=== PATIENT | male | born 1935 | race Caucasian/White ===

== ENCOUNTER 2018-10-05 19:44 | Inpatient (IN) | payer MEDICARE ==
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
[2018-10-05 21:15] LABS: ABS Basophils 0.1 10^3/ul (0-0.2); ABS Eosinophils 0.3 10^3/ul (0-0.6); ABS Lymphocytes 1.3 10^3/ul (1.0-4.8); ABS Monocytes 0.8 10^3/ul (0-0.8); ABS Neutrophils 3.1 10^3/ul (1.5-7.7); ABS Nucleated RBC 0 10^3/ul; Eosinophil % 4.6 %; Hematocrit 37 % (36-46); Hemoglobin 12.4 g/dL (14.0-18.0); Lymphocyte % 23.5 %; Mean Corpuscular HGB Conc 34 g/dL (31-36); Mean Corpuscular Hemoglobin 30 pg (27-31); Mean Corpuscular Volume 90 fL (80-94); Mean Platelet Volume 8.4 fL (7.4-10.4); Nucleated Red Blood Cells % 0; Platelet Count 190 10^3/uL (150-450); Red Blood Count 4.11 10^6 /uL (4.18-5.48); Red Cell Distribution Width 16 % (10.5-15); White Blood Count 5.6 10^3/uL (3.5-10.8)
[2018-10-05 21:23] LABS: INR 1.05 (0.77-1.02)
[2018-10-05 21:31] LABS: Albumin 3.5 g/dL (3.2-5.2); BUN/Creatinine Ratio 20.3 (8-20); Calcium 9.4 mg/dL (8.6-10.3); EGFR African American 71.5 (>60); EGFR Non-African American 59.1 (>60); Globulin 3.4 g/dL (2-4); Magnesium 2.1 mg/dL (1.9-2.7); Potassium 4.1 mmol/L (3.5-5.0); Total Bilirubin 0.4 mg/dL (0.2-1.0); Total Protein 6.9 g/dL (6.4-8.9)
[2018-10-05] MEDS ORDERED: LORazepam INJ* 2 MG/ML 1 ML VIAL IV PUSH ONE (22:01)
[2018-10-05] MEDS ORDERED: LORazepam INJ* 2 MG/ML 1 ML VIAL ONE (22:08)
[2018-10-05 22:19] LABS: TSH (Thyroid Stimulating Horm) 3.61 mcIU/mL (0.34-5.60)
[2018-10-05 23:49] LABS: Urine Appearance Turbid; Urine Bacteria Absent (Absent); Urine Bilirubin Negative (Negative); Urine Blood Negative (Negative); Urine Color Yellow; Urine Glucose Negative (Negative); Urine Ketones Negative (Negative); Urine Nitrite Negative (Negative); Urine Protein 1+(30 mg/dL) (Negative); Urine Red Blood Cell Absent (Absent); Urine Specific Gravity 1.012 (1.010-1.030); Urine Squamous Epithelial Cell Present (Absent); Urine Urobilinogen Negative (Negative); Urine White Blood Cell 3+(>20/hpf) (Absent)
[2018-10-05] MEDS ORDERED: Piperacillin/Tazobac ADVAN(*) 3.375 GM in NS 0.9% 100 ML* 100 ML IVPB ONE (23:52)
[2018-10-06] MEDS ORDERED: Acetaminophen TAB* 325 MG PO PRN (00:13)
[2018-10-06] MEDS ORDERED: LORazepam INJ* 2 MG/ML 1 ML VIAL IV PUSH PRN (00:15)
[2018-10-06 00:16] LABS: C Reactive Protein 1.6 mg/L (<8.01)
[2018-10-06] MEDS ORDERED: Dextrose 50% Syringe 50 ML* 25 GM/50 ML SYRINGE IV PUSH PRN (00:19)
[2018-10-06] MEDS ORDERED: Haloperidol INJ IV/IM* 5 MG/ML AMP IM ONE ×3 (00:27→02:13)
[2018-10-06] MEDS: QUEtiapine TAB* 25 MG PO ONE ×2 (02:09→02:15)
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
[2018-10-06] MEDS: cefTRIAXone(*) 1 GM in NS 0.9% 50 ML* 50 ML IVPB SCH (05:09)
[2018-10-06] MEDS: Heparin VIAL(*) 5000 UNITS/ML VIAL (FIVE THOUSAND) SUBCUT SCH ×3 (05:10→21:11)
[2018-10-06] MEDS ORDERED: Ferrous Gluconate TAB* 324 MG TAB PO SCH (09:00)
[2018-10-06] MEDS: Insulin LISPRO* 1 UNITS UNIT SUBCUT SCH ×3 (09:19→17:12)
[2018-10-06] MEDS: Metoprolol Tartrate TAB* 50 mg PO SCH ×2 (09:20→21:10)
[2018-10-06] MEDS: Cilostazol TAB* 100 MG PO SCH ×2 (09:20→21:09)
[2018-10-06] MEDS: Tamsulosin CAP* 0.4 MG PO SCH (09:20)
[2018-10-06] MEDS: Pantoprazole TAB * 40 MG TAB PO SCH (09:21)
--- NOTE | 2018-10-06 17:31 | PN ---
Subjective Date of Service: 10/06/18 Interval History: Pt seen and examined. Meds and labs reviewed. CC: N/A ROS: Denied WHITE/dizziness, F/C, N/V, CP, SOB, increased cough, sputum production , abd pain, diarrhea, constipation, dysuria, myalgias, arthralgias, throat pain , and new skin lesions. The rest of the 14 point ROS are unremarkable. PHYSICAL EXAM: GEN APPEARANCE: Awake, not in acute distress, oriented to person only (can name current [place] president) HEENT: NC/AT, PERRLA, moist oral mucosa, (-) throat erythema NECK: Soft, supple, (-) cervical LAD, (-)JVD HEART: S1S2 WNL, RRR, No MRG CHEST: CTA, BL, GAE, No W/R/R ABD: Soft, ND/NT, NABS 4x Q EXT: No C/C/RLE, prosthetic leg in place SKIN: Warm to touch PSYCH: No active psychosis, hallucinations, depression, SI/HI Objective Active Medications: Acetaminophen (Tylenol Tab*) 650 mg PO Q4H PRN PRN Reason: FEVER/PAIN Cilostazol (Pletal Tab*) 100 mg PO BID [facility] Last Admin: 10/06/18 09:20 Dose: 100 mg Dextrose (D50w Syringe 50 Ml*) 12.5 gm IV PUSH .FOR FS < 60 - SS PRN PRN Reason: FS < 60 Ferrous Gluconate (Fergon Tab*) 325 mg PO DAILY [facility] Last Admin: 10/06/18 09:20 Dose: 325 mg Gabapentin (Neurontin Cap(*)) 200 mg PO TID [facility] Heparin Sodium (Porcine) (Heparin Vial(*)) 5,000 units SUBCUT Q8HR [facility] Last Admin: 10/06/18 13:16 Dose: 5,000 units Ceftriaxone Sodium 1 gm/ (Sodium Chloride) 50 mls @ 200 mls/hr IVPB Q24H [facility] Last Admin: 10/06/18 05:09 Dose: Not Given Insulin Human Lispro (Humalog*) 0 units SUBCUT AC [facility]; Protocol Last Admin: 10/06/18 17:12 Dose: Not Given Lorazepam (Ativan Inj*) 0.5 mg IV PUSH Q4H PRN PRN Reason: ANXIETY Metoprolol Tartrate (Lopressor Tab*) 50 mg PO BID [facility] Last Admin: 10/06/18 09:20 Dose: 50 mg Pantoprazole Sodium (Protonix Tab*) 40 mg PO DAILY [facility] Last Admin: 10/06/18 09:21 Dose: 40 mg Tamsulosin HCl (Flomax Cap*) 0.4 mg PO DAILY [facility] Last Admin: 10/06/18 09:20 Dose: 0.4 mg Trazodone HCl (Desyrel Tab*) 25 mg PO BEDTIME [facility] Vital Signs - 8 hr 10/06/18 15:43 Temperature 97.5 F Pulse Rate 68 Respiratory 20 Rate Blood Pressure 131/66 (mmHg) O2 Sat by Pulse 96 Oximetry Oxygen Devices in Use Now: None Result Diagrams: 10/05/18 21:06 10/05/18 21:06 Assess/Plan/Problems-Billing Assessment: - Patient Problems (1) Dementia with behavioral disturbance Current Visit: Yes Status: Acute Code(s): F03.91 - UNSPECIFIED DEMENTIA WITH BEHAVIORAL DISTURBANCE SNOMED Code(s): 9505780911358 Comment: -Quetiapine given yesterday seems to work for acute issues -Currently pt easy to redirect; however, will place pt on Gabapentin and Trazodone for behavior control and once maximized consider adding low dose 2nd gen antipsychotic if ineffective and/or for acute issues -Possibly may have been worsened or became delerius with UTI (2) UTI (urinary tract infection) Current Visit: Yes Status: Acute Comment: -Continue Rocephin -Continue to follow cultures (3) Diabetes 1.5, managed as type 2 Current Visit: Yes Status: Acute Code(s): E13.9 - OTHER SPECIFIED DIABETES MELLITUS WITHOUT COMPLICATIONS SNOMED Code(s): 900600450 Comment: -Well-controlled -Continue ISS (4) CAD (coronary artery disease) Current Visit: Yes Status: Acute Code(s): I25.10 - ATHSCL HEART DISEASE OF [place] CORONARY ARTERY W/O ANG PCTRS SNOMED Code(s): 27538878 Comment: -Pt on Cilostazol and Metoprolol -Unclear why pt not on statins -Obtain fasting lipid levels in AM (5) DVT prophylaxis Current Visit: Yes Status: Acute Code(s): UKX8871 - SNOMED Code(s): 095316289 Comment: -Continue Heparin SQq8H Status and Disposition: -Awaiting placement; d/w care coordinators due to difficult/indeterminate status of health insurance
[2018-10-06] MEDS: traZODone TAB* 50 MG TAB PO SCH (21:10)
[2018-10-06] MEDS: Gabapentin CAP(*) 300 MG PO SCH (21:10)
[2018-10-06] MEDS ORDERED: QUEtiapine TAB* 25 MG PO ONE (21:33)
[2018-10-07 05:40] LABS: ABS Basophils 0.1 10^3/ul (0-0.2); ABS Eosinophils 0.3 10^3/ul (0-0.6); ABS Lymphocytes 0.9 10^3/ul (1.0-4.8); ABS Monocytes 0.6 10^3/ul (0-0.8); ABS Neutrophils 2.5 10^3/ul (1.5-7.7); ABS Nucleated RBC 0 10^3/ul; Eosinophil % 6.4 %; Hematocrit 36 % (36-46); Hemoglobin 12.2 g/dL (14.0-18.0); Lymphocyte % 20.8 %; Mean Corpuscular HGB Conc 34 g/dL (31-36); Mean Corpuscular Hemoglobin 30 pg (27-31); Mean Corpuscular Volume 90 fL (80-94); Mean Platelet Volume 8.6 fL (7.4-10.4); Nucleated Red Blood Cells % 0.1; Platelet Count 165 10^3/uL (150-450); Red Blood Count 4.04 10^6 /uL (4.18-5.48); Red Cell Distribution Width 15 % (10.5-15); White Blood Count 4.3 10^3/uL (3.5-10.8)
[2018-10-07] MEDS: cefTRIAXone(*) 1 GM in NS 0.9% 50 ML* 50 ML IVPB SCH (05:41)
[2018-10-07] MEDS: Heparin VIAL(*) 5000 UNITS/ML VIAL (FIVE THOUSAND) SUBCUT SCH ×2 (05:41→18:27)
[2018-10-07 05:55] LABS: Albumin 3.4 g/dL (3.2-5.2); BUN/Creatinine Ratio 19.1 (8-20); Calcium 9.2 mg/dL (8.6-10.3); EGFR African American 77.5 (>60); EGFR Non-African American 64.1 (>60); Globulin 3.3 g/dL (2-4); HDL Cholesterol 34.2 mg/dL; Phosphorus 3.4 mg/dL (2.5-5.0); Potassium 4.2 mmol/L (3.5-5.0); Total Bilirubin 0.4 mg/dL (0.2-1.0); Total Protein 6.7 g/dL (6.4-8.9)
[2018-10-07] MEDS: Insulin LISPRO* 1 UNITS UNIT SUBCUT SCH ×3 (07:38→16:48)
[2018-10-07] MEDS ORDERED: Cefdinir cap* 300 MG CAP PO SCH (08:00)
[2018-10-07] MEDS: Tamsulosin CAP* 0.4 MG PO SCH (08:20)
[2018-10-07] MEDS: Gabapentin CAP(*) 300 MG PO SCH (08:20)
[2018-10-07] MEDS: Pantoprazole TAB * 40 MG TAB PO SCH (08:20)
[2018-10-07] MEDS: Metoprolol Tartrate TAB* 50 mg PO SCH ×2 (08:20→20:41)
[2018-10-07] MEDS: Cilostazol TAB* 100 MG PO SCH ×2 (08:21→20:41)
[2018-10-07] MEDS: Ferrous Gluconate TAB* 324 MG TAB PO SCH (11:29)
--- NOTE | 2018-10-07 14:41 | PN ---
Subjective Date of Service: 10/07/18 Interval History: Pt seen and examined. Meds and labs reviewed. CC: N/A ROS: Denied WHITE/dizziness, F/C, N/V, CP, SOB, increased cough, sputum production , abd pain, diarrhea, constipation, dysuria, myalgias, arthralgias, throat pain , and new skin lesions. The rest of the 14 point ROS are unremarkable. PHYSICAL EXAM: GEN APPEARANCE: Awake, slightly lethargic, not in acute distress, oriented to person only (can name current [place] president) HEENT: NC/AT, PERRLA, moist oral mucosa, (-) throat erythema NECK: Soft, supple, (-) cervical LAD, (-)JVD HEART: S1S2 WNL, RRR, No MRG CHEST: CTA, BL, GAE, No W/R/R ABD: Soft, ND/NT, NABS 4x Q EXT: No C/C/RLE, prosthetic leg in place SKIN: Warm to touch PSYCH: No active psychosis, hallucinations, depression, SI/HI; pt more easily redirectable today and less agitated Objective Active Medications: Acetaminophen (Tylenol Tab*) 650 mg PO Q4H PRN PRN Reason: FEVER/PAIN Atorvastatin Calcium (Lipitor*) 40 mg PO 1700 [facility] Cefdinir (Cefdinir Cap*) 300 mg PO BID [facility] Stop: 10/15/18 20:59 Cilostazol (Pletal Tab*) 100 mg PO BID [facility] Last Admin: 10/07/18 08:21 Dose: 100 mg Dextrose (D50w Syringe 50 Ml*) 12.5 gm IV PUSH .FOR FS < 60 - SS PRN PRN Reason: FS < 60 Ferrous Gluconate (Fergon Tab*) 324 mg PO DAILY@1200 [facility] Last Admin: 10/07/18 11:29 Dose: 324 mg Gabapentin (Neurontin Cap(*)) 100 mg PO BID [facility] Heparin Sodium (Porcine) (Heparin Vial(*)) 5,000 units SUBCUT Q12H [facility] Insulin Human Lispro (Humalog*) 0 units SUBCUT AC [facility]; Protocol Last Admin: 10/07/18 11:23 Dose: Not Given Lorazepam (Ativan Inj*) 0.5 mg IV PUSH Q4H PRN PRN Reason: ANXIETY Metoprolol Tartrate (Lopressor Tab*) 50 mg PO BID [facility] Last Admin: 10/07/18 08:20 Dose: 50 mg Pantoprazole Sodium (Protonix Tab*) 40 mg PO DAILY [facility] Last Admin: 10/07/18 08:20 Dose: 40 mg Tamsulosin HCl (Flomax Cap*) 0.4 mg PO DAILY [facility] Last Admin: 10/07/18 08:20 Dose: 0.4 mg Trazodone HCl (Desyrel Tab*) 25 mg PO BEDTIME [facility] Last Admin: 10/06/18 21:10 Dose: 25 mg Vital Signs - 8 hr 10/07/18 10/07/18 10/07/18 07:38 07:40 08:20 Temperature 97.7 F Pulse Rate 67 Respiratory 16 20 16 Rate Blood Pressure 112/59 (mmHg) O2 Sat by Pulse 96 Oximetry 10/07/18 10/07/18 10/07/18 09:52 11:04 13:07 Temperature 97.4 F Pulse Rate 65 Respiratory 16 16 17 Rate Blood Pressure 102/53 (mmHg) O2 Sat by Pulse 97 Oximetry Oxygen Devices in Use Now: None Result Diagrams: 10/07/18 05:17 10/07/18 05:17 Assess/Plan/Problems-Billing Assessment: - Patient Problems (1) Dementia with behavioral disturbance Current Visit: Yes Status: Acute Code(s): F03.91 - UNSPECIFIED DEMENTIA WITH BEHAVIORAL DISTURBANCE SNOMED Code(s): 8083321555320 Comment: -Quetiapine given yesterday seems to work for acute issues -Pt easier to redirect today; will lower down Gabapentin to 100 BID and if stable and non-violent; consider D/C and continue Trazodone qHS -Possibly may have been worsened or became delirious with UTI (2) UTI (urinary tract infection) Current Visit: Yes Status: Acute Comment: -Informed by RN today that yesterdays Rocephin could not be given because he pulled out his IV -Will place pt on PO 3rd gen Cephalosporin instead given he reportedly takes PO meds fine -Continue to follow cultures (3) Diabetes 1.5, managed as type 2 Current Visit: Yes Status: Acute Code(s): E13.9 - OTHER SPECIFIED DIABETES MELLITUS WITHOUT COMPLICATIONS SNOMED Code(s): 109821335 Comment: -Well-controlled -Continue ISS (4) CAD (coronary artery disease) Current Visit: Yes Status: Acute Code(s): I25.10 - ATHSCL HEART DISEASE OF [place] CORONARY ARTERY W/O ANG PCTRS SNOMED Code(s): 60279857 Comment: -Pt on Cilostazol and Metoprolol -Unclear why pt not on statins -Fasting LDL = 80 and currently not at goal; started on Atorvastatin (5) DVT prophylaxis Current Visit: Yes Status: Acute Code(s): [id number] - SNOMED Code(s): 131304348 Comment: -Change to Heparin SQq12H given advanced age Status and Disposition: -Awaiting placement; d/w care coordinators due to difficult/indeterminate status of health insurance
[2018-10-07] MEDS ORDERED: Atorvastatin* 40 MG TAB PO SCH (17:00)
[2018-10-07] MEDS ORDERED: Docusate CAP* 100 MG PO PRN (18:54)
[2018-10-07] MEDS: traZODone TAB* 50 MG TAB PO SCH (20:41)
[2018-10-07] MEDS: Gabapentin CAP(*) 100 MG PO SCH (20:41)
[2018-10-07] MEDS: Cefdinir cap* 300 MG CAP PO SCH (21:26)
--- NOTE | 2018-10-08 02:24 | PN ---
Hospitalist Progress Note Cross coverage note: Called to eval patient after he was found crawling on the ground. Patient reports he was getting his teeth and needed to wash them, although his responses are generally nonsensical and he is not answering other questions appropriately. It is unknown how he got on the floor. Pt denies pain. vss - BP 114/61 at baseline head without ecchymosis or erythema, no ttp over head or cervical spine PERRL, no facial droop moves all extremities spontaneously with equal strength, noted to have BKA on RLE Appears patient is at baseline of being pleasant, confused, and uncooperative. Pt is not on anticoagulation, has no new neuro findings or evidence of trauma to head, so will hold off on head imaging for now. Pt is being monitored by RN closely and will have stat head CT if status changes from baseline.
[2018-10-08] MEDS: Heparin VIAL(*) 5000 UNITS/ML VIAL (FIVE THOUSAND) SUBCUT SCH ×2 (06:09→18:21)
[2018-10-08] MEDS: Insulin LISPRO* 1 UNITS UNIT SUBCUT SCH ×3 (08:35→16:33)
[2018-10-08] MEDS: Gabapentin CAP(*) 100 MG PO SCH (11:15)
[2018-10-08] MEDS: Pantoprazole TAB * 40 MG TAB PO SCH (11:17)
[2018-10-08] MEDS: Tamsulosin CAP* 0.4 MG PO SCH (11:17)
[2018-10-08] MEDS: Cefdinir cap* 300 MG CAP PO SCH (11:17)
[2018-10-08] MEDS: Ferrous Gluconate TAB* 324 MG TAB PO SCH (11:17)
[2018-10-08] MEDS: Cilostazol TAB* 100 MG PO SCH ×2 (11:29→20:46)
[2018-10-08] MEDS: Metoprolol Tartrate TAB* 50 mg PO SCH ×2 (11:49→20:46)
--- NOTE | 2018-10-08 15:48 | PN ---
Subjective Date of Service: 10/08/18 Interval History: Pt is feeling is feeling ok. He denies any pain, no SOB. He states he is peeing and pooping ok. He was found crawling on the floor last night but reportedly he will do that at home. Objective Active Medications: Acetaminophen (Tylenol Tab*) 650 mg PO Q4H PRN PRN Reason: FEVER/PAIN Last Admin: 10/08/18 06:26 Dose: 650 mg Atorvastatin Calcium (Lipitor*) 40 mg PO 1700 [facility] Last Admin: 10/07/18 16:49 Dose: 40 mg Cefdinir (Cefdinir Cap*) 300 mg PO BID [facility] Stop: 10/15/18 20:59 Last Admin: 10/08/18 11:17 Dose: 300 mg Cilostazol (Pletal Tab*) 100 mg PO BID [facility] Last Admin: 10/08/18 11:29 Dose: 100 mg Dextrose (D50w Syringe 50 Ml*) 12.5 gm IV PUSH .FOR FS < 60 - SS PRN PRN Reason: FS < 60 Docusate Sodium (Colace Cap*) 100 mg PO BID PRN PRN Reason: CONSTIPATION Last Admin: 10/08/18 11:49 Dose: 100 mg Ferrous Gluconate (Fergon Tab*) 324 mg PO DAILY@1200 [facility] Last Admin: 10/08/18 11:17 Dose: 324 mg Heparin Sodium (Porcine) (Heparin Vial(*)) 5,000 units SUBCUT Q12H [facility] Last Admin: 10/08/18 06:09 Dose: 5,000 units Insulin Human Lispro (Humalog*) 0 units SUBCUT [facility]; Protocol Last Admin: 10/08/18 12:43 Dose: Not Given Lorazepam (Ativan Inj*) 0.5 mg IV PUSH Q4H PRN PRN Reason: ANXIETY Metoprolol Tartrate (Lopressor Tab*) 50 mg PO BID [facility] Last Admin: 10/08/18 11:49 Dose: 50 mg Pantoprazole Sodium (Protonix Tab*) 40 mg PO DAILY [facility] Last Admin: 10/08/18 11:17 Dose: 40 mg Tamsulosin HCl (Flomax Cap*) 0.4 mg PO DAILY [facility] Last Admin: 10/08/18 11:17 Dose: 0.4 mg Trazodone HCl (Desyrel Tab*) 25 mg PO BEDTIME [facility] Last Admin: 10/07/18 20:41 Dose: 25 mg Vital Signs - 8 hr 10/08/18 10/08/18 10/08/18 08:00 11:15 11:46 Temperature 97.7 F Pulse Rate 91 Respiratory 18 17 20 Rate Blood Pressure 107/63 (mmHg) O2 Sat by Pulse 99 Oximetry 10/08/18 13:32 Temperature Pulse Rate Respiratory 18 Rate Blood Pressure (mmHg) O2 Sat by Pulse Oximetry Oxygen Devices in Use Now: None Appearance: Elderly male sitting up in bed, sleeping, awakens to voice and light touch, NAD Eyes: No Scleral Icterus Ears/Nose/Mouth/Throat: Mucous Membranes Moist Respiratory: Symmetrical Chest Expansion and Respiratory Effort, Clear to Auscultation Cardiovascular: NL Sounds; No Murmurs; No JVD, RRR, No Edema Abdominal: NL Sounds; No Tenderness; No Distention Extremities: No Clubbing, Cyanosis, - - R BKA Skin: No Nodules or Sclerosis Neurological: - - vague historian Result Diagrams: 10/07/18 05:17 10/07/18 05:17 Assess/Plan/Problems-Billing Mr Arechiga is an 83 yo M who has a h/o worsening dementia since 05/2018 who was admitted after he was aggressive to his at home. - Patient Problems (1) Dementia with behavioral disturbance Current Visit: Yes Status: Acute Code(s): F03.91 - UNSPECIFIED DEMENTIA WITH BEHAVIORAL DISTURBANCE SNOMED Code(s): 1559107050367 Comment: Pt very appropriate today. Will d/c antipsychotics and continue trazodone for sleep side. Continue to monitor. Ativan available for acute issues. (2) UTI (urinary tract infection) Current Visit: Yes Status: Acute Comment: Stop Abx as pt's urinalysis not completely consistent with UTI. Will await culture and if positive will start back Abx. (3) Type II diabetes mellitus Current Visit: Yes Status: Acute Comment: Resume januvia. Monitor sugars and cover with lispro. (4) CAD (coronary artery disease) Current Visit: Yes Status: Acute Code(s): I25.10 - ATHSCL HEART DISEASE OF [place] CORONARY ARTERY W/O ANG PCTRS SNOMED Code(s): 11604246 Comment: No c/o CP. Conitnue pletal, metoprolol and fenofibrate. (5) DVT prophylaxis Current Visit: Yes Status: Acute Code(s): RGA9339 - SNOMED Code(s): 334680344 Comment: SQ heparin (6) DNR (do not resuscitate) Current Visit: Yes Status: Acute Status and Disposition: .
[2018-10-08] MEDS: traZODone TAB* 50 MG TAB PO SCH (20:46)
[2018-10-09] MEDS: Heparin VIAL(*) 5000 UNITS/ML VIAL (FIVE THOUSAND) SUBCUT SCH (06:16)
[2018-10-09] MEDS: Insulin LISPRO* 1 UNITS UNIT SUBCUT SCH ×2 (08:18→12:22)
[2018-10-09] MEDS ORDERED: CMCS:Fenofibrate(NF) 145 MG TAB PO SCH (09:00)
[2018-10-09] MEDS ORDERED: CMCS:SitaGLIPtin (NF) 25 MG TAB PO SCH (09:00)
[2018-10-09] MEDS: Metoprolol Tartrate TAB* 50 mg PO SCH (10:58)
[2018-10-09] MEDS: Tamsulosin CAP* 0.4 MG PO SCH (10:58)
[2018-10-09] MEDS: Cilostazol TAB* 100 MG PO SCH (10:58)
[2018-10-09] MEDS: Pantoprazole TAB * 40 MG TAB PO SCH (10:58)
[2018-10-09] MEDS ORDERED: Cephalexin CAP* 500 MG PO SCH (12:00)
[2018-10-09] MEDS: Ferrous Gluconate TAB* 324 MG TAB PO SCH ×2 (12:09→12:54)
[2018-10-09 12:11] VITALS: BP 126/67
--- NOTE | 2018-10-09 15:14 | DS ---
CC: Dr. Wright* DISCHARGE SUMMARY: DATE OF ADMISSION: 10/06/18 DATE OF DISCHARGE: 10/09/18 PRIMARY CARE PROVIDER: Dr. Wright. PRINCIPAL DIAGNOSES: 1. Urinary tract infection. 2. Aggression, likely secondary to urinary tract infection. SECONDARY DIAGNOSES: 1. Dementia. 2. Type 2 diabetes. 3. Benign prostatic hyperplasia. 4. Hyperlipidemia. DISCHARGE MEDICATIONS: 1. Fenofibrate 145 mg p.o. daily. 2. Januvia 50 mg p.o. daily. 3. Olanzapine 5 mg p.o. q.h.s. 4. Multivitamin 1 tab p.o. daily. 5. Flomax 0.4 mg p.o. daily. 6. Ferrous gluconate 325 mg p.o. daily. 7. Metoprolol tartrate 50 mg p.o. twice daily. 8. Protonix 40 mg p.o. daily. 9. Pletal 100 mg p.o. twice daily. 10. Keflex 500 mg p.o. twice daily x8 doses. HOSPITAL COURSE: Mr. Arechiga is an 83-year-old male, who has had progressive decline in his mental status since May 2018, but became aggressive with his on 10/05/18. This is very out of the ordinary for him. His family indicates that he has had progressive decline in his mental status, though does not really become agitated. He has had some sundowning at night. At home, he will crawl to the bathroom when he does not have his prosthesis on. The patient was hospitalized and was given Haldol and Seroquel due to aggression in the ER. He has since been generally appropriate. He does become slightly agitated when he wants to get up and walk to the bathroom, but the nursing staff will not let him. The patient at this point is stable for discharge back home. He was found to have a urinary tract infection and has received antibiotics since admission. I suspect the aggression that was noted on the day prior to admission was secondary to the urinary tract infection. Long discussion was had with the patient's , their aide and the patient's 's granddaughter about the patient returning home versus going to a shelter for long-term care. At this point, as this is a onetime event with him being severely agitated and aggressive, they do wish to try to take him home to see how he will do. They do understand that dementia is a progressive disease and it is possible that he may ultimately need to be placed in a shelter, though they wish to hold off for now. PHYSICAL EXAMINATION: On the day of discharge, the patient is awake. He is oriented to situation. His vital signs are stable. He is sitting in a chair in the hallway with his family. His cardiac exam reveals normal S1, S2. Regular rate and rhythm. His lungs are clear. His abdomen is soft, nontender, nondistended. 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 FOLLOWUP CONCERNS: The patient is being discharged home today, 10/09/18. ACTIVITY LEVEL: As tolerated. DIET: Diabetic. CONDITION ON DISCHARGE: Stable. TIME SPENT: Thirty-five minutes was spent discharging this patient. [id number]/CPS #: [id number] [place]
== END 2018-10-09 15:20 | disposition home or self-care (01) | DRG 690 ==
LOC: ED 19:44 → MEDTELE 10-06 00:13 → MED 10-07 12:26
PROVIDERS: ADMIT Internal Medicine; ATTEND Hospitalist
DX: N39.0 Urinary tract infection, site not specified (principal); F03.91 Unspecified dementia, unspecified severity, with behavioral disturbance; E11.9 Type 2 diabetes mellitus without complications; N40.0 Benign prostatic hyperplasia without lower urinary tract symptoms; E78.5 Hyperlipidemia, unspecified; I10 Essential (primary) hypertension; Z66 Do not resuscitate; I25.10 Atherosclerotic heart disease of native coronary artery without angina pectoris; Z89.511 Acquired absence of right leg below knee; Z95.2 Presence of prosthetic heart valve; Z87.440 Personal history of urinary (tract) infections; Z85.46 Personal history of malignant neoplasm of prostate
CPT/HCPCS: 36415; 70450; 71045; 80053; 80061; 81003; 81015; 83735; 84100; 84443; 85025; 85610; 85730; 86140; 87077; 87086; 87186; 99284; A9270-GY; J0696; J1630; J1644; J2060; J2543